=== PATIENT | male | born 1980 | race Caucasian/White ===

== ENCOUNTER 2021-07-29 16:23 | Emergency (ER) | payer BC ==
[~2021-07-29] VITALS: Ht 180.3 cm; Wt 88.5 kg
[2021-07-29] MEDS ORDERED: CYCLOBENZAPRINE10 MG PO (19:57)
== END 2021-07-29 20:46 | disposition home or self-care (01) ==
LOC: ED 16:23
DX: S39.012A Strain of muscle, fascia and tendon of lower back, initial encounter (principal); X50.3XXA Overexertion from repetitive movements, initial encounter
CPT/HCPCS: 99283